=== PATIENT | female | born 1945 | race Caucasian/White ===

== ENCOUNTER 2017-12-03 17:46 | Emergency (ER) | payer MEDICARE, BC, SELFPAY ==
[2017-12-03 18:07] VITALS: BP 113/75; PULSE 68; RESP 16; TEMP 36.7; O2SAT 98; BMI 25.8
--- NOTE | 2017-12-03 18:13 | HMH.EDUTC ---
[facility] [place] Disposition Clinical Impression: UTI (urinary tract infection) Qualifiers: Urinary tract infection type: site unspecified Hematuria presence: without hematuria Qualified Code(s): N39.0 - Urinary tract infection, site not specified Disposition: Home, Self-Care Condition on Discharge: Good Instructions: Urinary Tract Infection, DI for Urinary Tract Infection (UTI) Additional Instructions: *Increase fluids. Water not Soda or Tea *Start antibiotic immediately and be sure to take as ordered for the FULL length of time although you should start to see improvement over the next 48 hours *Pyridium as needed Remember this medication will turn your urine [place]. This is normal but it will stain what ever it gets on *You should not use Pyridium for more than 48 hours. If so , follow up with your primary physician to review urine culture and ensure that antibiotic is adequate for infection *Be SURE to follow up anytime for new or worsening symptoms. AND in 48 hours for urine culture results AND in 10-14 days to repeat UA to ensure infection is resolved and blood no longer present *Be sure to let your PCP know that we sent urine cultures from the [facility] so they can follow up to ensure that you area the on the correct antibiotic Follow up with family doctor in 12-48 hours or sooner if no improvement or worsening of symptoms Straight to ER if any life threatening symptoms Prescriptions: Phenazopyridine HCl [Pyridium 200mg Tablet] 200 pow PO TID #6 tab Sulfamethoxazole/Trimethoprim [Bactrim DS tablet] 1 each PO BID #20 tab Referrals: John Shore [Primary Care Provider] - Time of Disposition: 18:23 Medical Decision Making - Medical Records Medical records reviewed: Yes: I reviewed the patient's medical records. Vital Signs: 12/03/17 18:07 Temperature 98.1 F Temperature Source Temporal Artery Scan Pulse Rate [Right Brachial] 68 Respiratory Rate 16 Blood Pressure [Right Arm] 113/75 Blood Pressure Mean [Right Arm] 87 Blood Pressure Source [Right Arm] Automatic Cuff Blood Pressure Position [Right Arm] Sitting 02 Sat by Pulse Oximetry 98 Oxygen Delivery Method Room Air - Lab Data Lab results reviewed: Yes: I reviewed the patient's lab results. - Sundeep Inquiry Pt receiving controlled substance: No Sundeep was queried for this patient: No [facility] [place] HPI - General Stated complaint: poss uti Mode of Arrival: Family Vehicle Source of Information: Patient Limitations: No Limitations Description of Symptoms (Recalled from Triage Doc. by RN): C/O UTI WITH LOWER BACK PAIN HEENT Symptoms (Recalled from RN notes): No Resp Symptoms (Recalled from RN notes): No Skin Symptoms (Recalled from RN notes): No MS Symptoms (Recalled from RN notes): No Functional Status (Recalled from RN notes): N/A - History of Present Illness Provider Complaint: Patient state that she feels like she has a UTI States that she has been having low back pain and feeling like she has to go to the bathroom alot States that she also feels like she has to go more frequently States that she has done this before and she had a UTI so she wanted to get checked - Related Data Home Medications Medication Instructions Recorded Confirmed Calcium Carbonate [Calcium] 600 mg PO DAILY 12/03/17 12/03/17 Calcium Crb,Cit/D3/Min34/Ernst 2 each PO DAILY 12/03/17 12/03/17 [Citracal + Bone Density Tablet] Cranberry 500 mg PO DAILY 12/03/17 12/03/17 Losartan Potassium [Losartan 50 mg PO DAILY 12/03/17 12/03/17 Potassium] Multivitamin [Multi-Vitamin Plain] 1 each PO DAILY 12/03/17 12/03/17 Elbert-3 Fatty Acids [Fish Oil] 300 mg PO DAILY 12/03/17 12/03/17 Pravastatin Sodium [Pravachol 40mg 40 mg PO DAILY 12/03/17 12/03/17 Tablet] Previous Rx's Medication Instructions Recorded Phenazopyridine HCl [Pyridium 200 pow PO TID #6 tab 12/03/17 200mg Tablet] Sulfamethoxazole/Trimethoprim 1 each PO BID #20 tab 12/03/17 [Bactrim DS tablet] Allergies All
[2017-12-03 18:16] LABS: Apearance,Urine Clear (Clear); Bilirubin,Urine Negative (Negative); Blood, Urine Negative (Negative); Color,Urine Yellow (Yellow); Glucose,Urine (UA) Negative (Negative); Ketones,Urine Negative (Negative); Protein,Urine Negative (Negative); Specific Gravity, Urine 1.015 (1.005-1.030); Urobilinogen,Urine 0.2 EU/dl (0.2)
[2017-12-03 18:17] LABS: UTC Leukocyte Esterase,Urine 3+ (Negative); UTC Nitrate,Urine Negative (Negative)
--- NOTE | 2017-12-03 18:18 | ED_ITS ---
[facility] [place] Clinical Impression: UTI (urinary tract infection) Qualifiers: Urinary tract infection type: site unspecified Hematuria presence: without hematuria Qualified Code(s): N39.0 - Urinary tract infection, site not specified Disposition: Home, Self-Care Condition on Discharge: Good Instructions: Urinary Tract Infection, DI for Urinary Tract Infection (UTI) Additional Instructions: *Increase fluids. Water not Soda or Tea *Start antibiotic immediately and be sure to take as ordered for the FULL length of time although you should start to see improvement over the next 48 hours *Pyridium as needed Remember this medication will turn your urine [place]. This is normal but it will stain what ever it gets on *You should not use Pyridium for more than 48 hours. If so , follow up with your primary physician to review urine culture and ensure that antibiotic is adequate for infection *Be SURE to follow up anytime for new or worsening symptoms. AND in 48 hours for urine culture results AND in 10-14 days to repeat UA to ensure infection is resolved and blood no longer present *Be sure to let your PCP know that we sent urine cultures [facility] so they can follow up to ensure that you area the on the correct antibiotic Follow up with family doctor in 12-48 hours or sooner if no improvement or worsening of symptoms Straight to ER if any life threatening symptoms Prescriptions: Phenazopyridine HCl [Pyridium 200mg Tablet] 200 pow PO TID #6 tab Sulfamethoxazole/Trimethoprim [Bactrim DS tablet] 1 each PO BID #20 tab Referrals: John Shore [Primary Care Provider] - Time of Disposition: 18:23 Medical Decision Making - Medical Records Medical records reviewed: Yes: I reviewed the patient's medical records. Vital Signs: 12/03/17 18:07 Temperature 98.1 F Temperature Source Temporal Artery Scan Pulse Rate [Right Brachial] 68 Respiratory Rate 16 Blood Pressure [Right Arm] 113/75 Blood Pressure Mean [Right Arm] 87 Blood Pressure Source [Right Arm] Automatic Cuff Blood Pressure Position [Right Arm] Sitting 02 Sat by Pulse Oximetry 98 Oxygen Delivery Method Room Air - Lab Data Lab results reviewed: Yes: I reviewed the patient's lab results. - Sundeep Inquiry Pt receiving controlled substance: No Sundeep was queried for this patient: No [facility] [place] - General Stated complaint: poss uti Mode of Arrival: Family Vehicle Source of Information: Patient Limitations: No Limitations Description of Symptoms (Recalled from Triage Doc. by RN): C/O UTI WITH LOWER BACK PAIN HEENT Symptoms (Recalled from RN notes): No Resp Symptoms (Recalled from RN notes): No Skin Symptoms (Recalled from RN notes): No MS Symptoms (Recalled from RN notes): No Functional Status (Recalled from RN notes): N/A - History of Present Illness Provider Complaint: Patient state that she feels like she has a UTI States that she has been having low back pain and feeling like she has to go to the bathroom alot States that she also feels like she has to go more frequently States that she has done this before and she had a UTI so she wanted to get checked - Related Data Home Medications Medication Instructions Recorded Confirmed Calcium Carbonate [Calcium] 600 mg PO DAILY 12/03/17 12/03/17 Calcium Crb,Cit/D3/Min34/Ernst 2 each PO DAILY 12/03/17 12/03/17 [Citracal + Bone Density Tablet] Cranberry 500 mg PO DAILY 12/03/17 12/03/17 Losartan [place]
[2017-12-03 18:30] VITALS: BP 113/75; PULSE 68; RESP 16; TEMP 36.7; O2SAT 98
== END 2017-12-03 18:31 | disposition home or self-care (01) ==
PROVIDERS: Emergency Provider Nurse Practitioner; Family Provider Family Medicine; PCP Family Medicine
DX: N39.0 Urinary tract infection, site not specified (principal)
CPT/HCPCS: G0463; 81003; 87086; 87088; 87186; 99202

== ENCOUNTER 2022-07-09 12:12 | Emergency (ER) | payer MEDICARE, BC, SELFPAY ==
[2022-07-09 13:35] VITALS: BP 128/79; PULSE 76; RESP 19; TEMP 36.6; O2SAT 98; BMI 26.6
[2022-07-09 13:59] LABS: Apearance,Urine Cloudy (Clear); Color,Urine Dark Yellow (Yellow); PH,Urine 6.5 (5.0-8.5); Specific Gravity, Urine 1.015 (1.005-1.030)
[2022-07-09 14:00] LABS: Bilirubin,Urine Negative (Negative); Blood, Urine Negative (Negative); Glucose,Urine (UA) Negative (Negative); Ketones,Urine Negative (Negative); Protein,Urine Negative (Negative); UTC Leukocyte Esterase,Urine 1+ (Negative); UTC Nitrate,Urine Positive (Negative); Urobilinogen,Urine 0.2 EU/dl (0.2)
--- NOTE | 2022-07-09 14:01 | EXP.UTC ---
Discharge Plan Disposition Patient Disposition: Home, Self-Care Condition: Good Prescriptions Prescriptions: New cefdinir 300 mg capsule 300 mg PO BID 7 Days Qty: 14 0RF phenazopyridine [Pyridium] 200 mg tablet 200 mg PO Q8H 2 Days Qty: 6 0RF No Action atorvastatin 40 mg tablet 40 mg PO HS Label Comments: TAKE 1 TABLET BY MOUTH EVERY DAY FOR 90 DAYS losartan 50 MG tablet 50 mg PO DAILY Label Comments: TAKE 1 TABLET BY MOUTH EVERY DAY Referrals Follow up/Referrals: Philip Massey MD [Primary Care Provider] - See instructions Activity Restrictions/Add. Instructions Additional Instructions/Restrictions: *Increase fluids. Water not Soda or Tea *Start antibiotic immediately and be sure to take as ordered for the FULL length of time although you should start to see improvement over the next 48 hours *Pyridium as needed Remember this medication will turn your urine . This is normal but it will stain what ever it gets on *You should not use Pyridium for more than 48 hours. If so , follow up with your primary physician to review urine culture and ensure that antibiotic is adequate for infection *Be SURE to follow up anytime for new or worsening symptoms with your family doctor. AND in 48 hours for urine culture results with your family doctor, if you do not have a doctor then you may call back to the [facility] for urine culture results and further treatment. We do recommend that you choose and establish care with a Primary Care Physician. ?AND follow up with them ?in 10-14 days to repeat UA to ensure infection is resolved and blood no longer present *Be sure to let your PCP know that we sent urine cultures from the [facility] so they can follow up to ensure that you area the on the correct antibiotic Call your doctor office and make appointment for 48 hours (2 days from today) ?to follow up and get the results of your urine culture and further treatment Clinical Impressions Clinical Impression: UTI (urinary tract infection) Instructions Patient Instructions: DI for Urinary Tract Infection (UTI), Urinary Tract Infection Discharge ED Provider: Galina Soto [facility] [place] General Stated complaint: possible UTI Mode of Arrival: Ambulatory Source of Information: Patient Limitations: No Limitations Time Seen by Provider: 07/09/22 14:01 Description of Symptoms (Recalled from Triage Doc. by RN): PATIENT C/O FREQUENT URINATION AND BLADDER PRESSURE X 2 DAYS HEENT Symptoms (Recalled from RN notes): No Resp Symptoms (Recalled from RN notes): No Skin Symptoms (Recalled from RN notes): No MS Symptoms (Recalled from RN notes): No Functional Status (Recalled from RN notes): WNL History of Present Illness Provider Complaint: Patient states that she thinks she has a UTI States that she has been having urinary frequency and burning she urinates and pressure like feeling after State that feels like it does when she gets a UTI Related Data Home Medications Medication Instructions Recorded Confirmed losartan 50 mg tablet 50 mg PO DAILY Hypertension 12/03/17 07/09/22 atorvastatin 40 mg tablet 40 mg PO HS Cholesterol 07/09/22 07/09/22 Previous Rx's Medication Instructions Recorded cefdinir 300 mg capsule 300 mg PO BID 7 days #14 caps 07/09/22 phenazopyridine 200 mg tablet 200 mg PO Q8H pain 2 days #6 tabs 07/09/22 (Pyridium) Allergies Allergy/AdvReac Type Severity Reaction Status Date / Time sulfamethoxazole Allergy Verified 07/09/22 13:51 [From Bactrim] trimethoprim [From Bactrim] Allergy Verified 07/09/22 13:51 Worker's Comp Is this a Worker's Comp case?: No PFSH PFSH Medical History (Updated 07/09/22 @ 14:10 by Galina Soto APRN) Breast cancer Hyperlipidemia Hypertension Urinary tract infection Surgical History (Updated 07/09/22 @ 13:50 by Hailey Sun RN) History of hysterectomy History of mastectomy Social History (Updated 07/09/22 @ 13:50 by Hailey Sun RN)
[2022-07-09 14:11] VITALS: BP 128/79; PULSE 76; RESP 19; TEMP 36.6; O2SAT 98
== END 2022-07-09 14:13 | disposition home or self-care (01) ==
PROVIDERS: Emergency Provider Nurse Practitioner; PCP Emergency Medicine
DX: N39.0 Urinary tract infection, site not specified (principal)
CPT/HCPCS: 81003; 87086; 87088; 87186; 99212; G0463

== ENCOUNTER 2023-10-01 12:24 | Emergency (ER) | payer MEDICARE, BC, SELFPAY ==
[2023-10-01 13:40] VITALS: BP 141/86; PULSE 71; RESP 20; TEMP 36.6; O2SAT 99; BMI 26.8
[2023-10-01 13:51] VITALS: BP 141/86; PULSE 71; RESP 20; TEMP 36.6; O2SAT 99
--- NOTE | 2023-10-01 14:18 | EXP.UTC ---
Discharge Plan Disposition Patient Disposition: Home, Self-Care Condition: Good Prescriptions Prescriptions: New cefdinir 300 mg capsule 300 mg PO BID Qty: 20 0RF guaifenesin [Mucinex] 600 mg tablet extended release 12hr 600 mg PO BID PRN (Reason: cough) Qty: 20 0RF No Action atorvastatin 40 mg tablet 40 mg PO HS Patient Comments: TAKE 1 TABLET BY MOUTH EVERY DAY FOR 90 DAYS losartan 50 mg tablet 50 mg PO DAILY Patient Comments: TAKE 1 TABLET BY MOUTH EVERY DAY nitrofurantoin monohyd/m-cryst 100 mg capsule 1 cap PO HS Patient Comments: TAKE 1 CAPSULE BY MOUTH EVERY DAY AT BEDTIME FOR 90 DAYS Referrals Follow up/Referrals: Philip Massey MD [Primary Care Provider] - See instructions Activity Restrictions/Add. Instructions Additional Instructions/Restrictions: Start antibiotic today. Be sure to complete entire prescription even if feeling better Monitor temp. Tylenol every 4 hours as needed and / or ibuprofen every 6 hours as needed ( As long as your primary care physician has told you that it ok to take both. For fever/aches/pains ER if no less than 101 despite Tylenol or Motrin Humidifier/vaporizer or hot steamy shower may help with nasal congestion and cough Mucinex during the day for your cough and cough suppressant only at night. Be sure to drink lots of water. Insurance may not cover a prescriptions for mucinex. Might be cheaper to get 400mg tablets and take 2 tablet in the morning, mid-day and evening with lots of water. *Tessalon Perles will not cause drowsiness but use at bedtime to help stop cough so that you may get some rest. . Follow up IMMEDIATELY for new or worsening of symptoms OR no noticeable improvement over the next 48-72 hours. 911 immediately for any life threatening symptoms such as chest pain or difficulty breathing Clinical Impressions Clinical Impression: Bronchitis Sinusitis Qualifiers: Sinusitis location: unspecified location Chronicity: unspecified Qualified Code(s): J32.9 - Chronic sinusitis, unspecified Instructions Patient Instructions: Acute Bronchitis, DI for Sinusitis Discharge ED Provider: Galina Soto [facility] [place] HPI General Stated complaint: cough, congestion, chills Mode of Arrival: Ambulatory Source of Information: Patient Limitations: No Limitations Time Seen by Provider: 10/01/23 14:18 Description of Symptoms (Recalled from Triage Doc. by RN): PATIENT C/O COUGH WITH DARK GREEN MUCOUS AND CONGESTION X 1 WEEK HEENT Symptoms (Recalled from RN notes): Yes Resp Symptoms (Recalled from RN notes): Yes Skin Symptoms (Recalled from RN notes): No MS Symptoms (Recalled from RN notes): No Functional Status (Recalled from RN notes): WNL History of Present Illness Provider Complaint: Patient states that for the last week she has been having some sinus congestion and pressure, drainage in the back of her throat and at times coughing up some thick mucous States that she hasnt had a fever or anything but today she was still not feeling well so she came in to get checked Related Data Home Medications Medication Instructions Recorded Confirmed atorvastatin 40 mg tablet 40 mg PO HS Cholesterol 07/09/22 10/01/23 losartan 50 mg tablet 50 mg PO DAILY 10/01/23 10/01/23 nitrofurantoin 1 cap PO HS 10/01/23 10/01/23 monohydrate/macrocrystals 100 mg capsule Previous Rx's Medication Instructions Recorded cefdinir 300 mg capsule 300 mg PO BID #20 caps 10/01/23 guaifenesin 600 mg tablet, 600 mg PO BID PRN cough #20 tabs 10/01/23 extended release 12 hr (Mucinex) Allergies Allergy/AdvReac Type Severity Reaction Status Date / Time sulfamethoxazole Allergy Verified 07/09/22 13:51 [From Bactrim] trimethoprim [From Bactrim] Allergy Verified 07/09/22 13:51 Worker's Comp Is this a Worker's Comp case?: No [facility] Disclaimer: The information contained in this section may have been updated after the patient was seen, as this information can be updated by other users. Medical History (Updated 10/01/23 @ 14:29 by Galina Soto APRN) Breast cancer Hyperlipidemia Hypertension Urinary tract infection Surgical History (Updated 07/09/22 @ 13:50 by Hailey Sun RN) History of hysterectomy History of mastectomy Social History (Updated 07/09/22 @ 14:10 by Galina Soto APRN) Smoking Status: Unknown if ever smoked alcohol intake: never current occupational status: retired Travel in the last 8 weeks: None ROS Obtained: Yes All systems reviewed & no additional complaints except as documented and Yes Systems reviewed as appropriate & no additional complaints except as documented Constitutional Constitutional: Reports system reviewed and no additional complaints, except as documented and Reports as per HPI ENT Ears, Nose, Mouth, and Throat: Reports system reviewed and no additional complaints, except as documented, Reports as per HPI, Reports sinus pain and Reports sinus pressure Cardiovascular Cardiovascular: Reports system reviewed and no additional complaints, except as documented, Reports as per HPI and Denies dyspnea Respiratory Respiratory: Reports system reviewed and no additional complaints, except as documented, Reports as per HPI, Denies shortness of breath, Reports chest congestion, Reports cough, Denies dyspnea, Denies pain on inspiration and Denies pain with cough Gastrointestinal Gastrointestingal: Reports system reviewed and no additional complaints, except as documented and as per HPI Physical Exam General General appearance: alert and in no apparent distress ENT ENT exam: Present mucous membranes moist Expanded ENT Exam Nose exam: Present sinus tenderness Throat exam: Present other (Pharyngeal erythema noted with PND) Respiratory Respiratory exam: Present normal lung sounds bilaterally; Absent respiratory distress or wheezes Cardiovascular Cardiovascular exam: Present regular rate, normal rhythm and normal heart sounds Abdominal Exam Abdominal exam: Present soft and normal bowel sounds; Absent distention or tenderness Neurological Exam Neurological exam: Present alert, oriented X3 and normal gait Medical Decision Making Sundeep Inquiry Pt receiving controlled substance: No Sundeep was queried for this patient: No Vital Signs: 10/01/23 13:40 10/01/23 13:51 Temperature 97.9 F 97.9 F Temperature Source Oral Pulse Rate 71 Pulse Rate [Left Brachial] 71 Respiratory Rate 20 20 Blood Pressure 141/86 H Blood Pressure [Left Arm] 141/86 H Blood Pressure Mean [Left Arm] 104 Blood Pressure Source [Left Arm] Automatic Cuff Blood Pressure Position [Left Arm] Sitting 02 Sat by Pulse Oximetry 99 Oxygen Delivery Method Room Air Medical Decision Narrative: Patient states that she has take steriod injections in the past without complications or reaction
[2023-10-01] MEDS: METHYLPREDNISOLONE SOD SUCC 125MG VIAL 125 MG IM (14:35)
== END 2023-10-01 14:47 | disposition home or self-care (01) ==
PROVIDERS: Emergency Provider Nurse Practitioner; PCP Emergency Medicine
DX: J20.9 Acute bronchitis, unspecified (principal); J01.90 Acute sinusitis, unspecified; R05.8 Other specified cough; R09.81 Nasal congestion; R09.82 Postnasal drip; E78.5 Hyperlipidemia, unspecified; I10 Essential (primary) hypertension
CPT/HCPCS: 96372; 99212; 99214; G0463